=== PATIENT | female | born 1980 | race Two or more races ===

== ENCOUNTER 2016-11-01 00:58 | Emergency (ER) | payer OTHER ==
[~2016-11-01] VITALS: Ht 160 cm; Wt 77.1 kg
[2016-11-01 01:26] LABS: Urine Bilirubin Negative (Negative); Urine Blood 2+ /uL (Negative); Urine Color Yellow (Yellow); Urine Glucose 4+ mg/dL (Normal); Urine Ketone TRACE (Negative); Urine Nitrite Negative (Negative); Urine RBC 1 /hpf (0 - 4); Urine Squamous Epithelial Cell FEW /hpf (<5); Urine Urobilinogen Normal (Negative)
[2016-11-01 01:35] LABS: Basophils # (auto) 0 uL; Basophils % (auto) 0.4 % (0.0-2.0); DEFINITIVE VIEW TRANSMISSION; Eosinophils # (auto) 0.1 uL; Eosinophils % (auto) 1.7 % (0.0-7.0); Hematocrit 41.6 % (36.0-46.0); Lymphocytes # (auto) 2.9 uL; Lymphocytes % (auto) 39.4 % (10.0-50.0); Mean Corpuscular Hemoglobin 26.7 pg (28.0-32.0); Mean Corpuscular Hgb Conc. 33.8 g/dL (32.0-36.0); Mean Corpuscular Volume 79.1 fL (80.0-100.0); Mean Platelet Volume 10.3 fL (7.4-10.4); Monocytes # (auto) 0.5 uL; Monocytes % (auto) 6.1 % (0.0-12.0); Neutrophils # (auto) 3.9 uL; Neutrophils % (auto) 52.4 % (37.0-80.0); Platelet Count (auto) 242 10^3/uL (140-450); Red Cell Distribution Width 14.3 % (11.6-16.0); White Blood Cell 7.4 10^3/uL (4.4-10.8)
[2016-11-01 01:51] LABS: INR 1.03 (0.9-1.15); Partial Thromboplastin Time 25.7 sec (22.64-33.71); Prothrombin Time 10.6 sec (9.37-12.3)
[2016-11-01 02:11] LABS: Albumin 3.4 g/dL (3.4-5.0); Calcium 8.6 mg/dL (8.5-10.1); Potassium 3.9 mmol/L (3.5-5.1)
[2016-11-01 02:14] LABS: Bilirubin, Total 0.2 mg/dL (0.2-1.0); Total Protein 7.9 g/dL (6.4-8.2)
[2016-11-01] MEDS ORDERED: SODIUM CHLORIDE 0.9% 1,000 ML IVB ONE (07:49)
[2016-11-01] MEDS ORDERED: KETOROLAC TROMETH 30 MG/ML 1ML VIAL IV ONE (08:00)
[2016-11-01] MEDS ORDERED: METOCLOPRAMIDE HCL 5MG/ml INJ 2ml VIAL IV ONE (08:00)
[2016-11-01 09:56] VITALS: BP 126/71
== END 2016-11-01 11:22 | disposition home or self-care (01) ==
LOC: ER 01:01
DX: R10.12 Left upper quadrant pain (principal); R51 Headache; E11.65 Type 2 diabetes mellitus with hyperglycemia
CPT/HCPCS: 36415; 74176; 80053; 81001; 81025; 82150; 82962; 83690; 85025; 85610; 85730; 96361; 96374; 96375; 99285; J1885; J2765; J7030

== ENCOUNTER 2018-01-17 16:40 | Emergency (ER) | payer OTHER ==
[~2018-01-17] VITALS: Ht 160 cm; Wt 75.7 kg
[2018-01-17 17:42] VITALS: BP 162/94
[2018-01-17] MEDS ORDERED: KETOROLAC TROMETH 60MG/2ML VIAL IM ONE (18:15)
== END 2018-01-17 18:34 | disposition home or self-care (01) ==
LOC: EDBD 16:40 → ER 16:49
DX: S83.8X1A Sprain of other specified parts of right knee, initial encounter (principal); S76.011A Strain of muscle, fascia and tendon of right hip, initial encounter; E11.9 Type 2 diabetes mellitus without complications; W01.0XXA Fall on same level from slipping, tripping and stumbling without subsequent striking against object, initial encounter; Y93.89 Activity, other specified; Y99.8 Other external cause status; Y92.89 Other specified places as the place of occurrence of the external cause
CPT/HCPCS: 73502; 73562; 96372; 99284; J1885